=== PATIENT | male | born 1940 | race Caucasian/White ===

== ENCOUNTER → 2016-09-06 | Outpatient (CLI) | payer OTHER ==
[~2016-09-06] MED LIST: EZET10TA38
[2016-09-06 07:46] LABS: Urine RBC None Seen /hpf (0 - 3)
[2016-09-06 08:18] LABS: Basophils # (auto) 0 uL; Basophils % (auto) 0.6 % (0.0-2.0); Eosinophils # (auto) 0.3 uL; Eosinophils % (auto) 3.6 % (0.0-7.0); Hematocrit 52.6 % (41.0-53.0); Hemoglobin 17.7 g/dL (13.5-17.5); Lymphocytes % (auto) 37.9 % (10.0-50.0); Mean Corpuscular Hemoglobin 31.1 pg (28.0-32.0); Mean Corpuscular Hgb Conc. 33.7 g/dL (32.0-36.0); Mean Corpuscular Volume 92.3 fL (80.0-100.0); Mean Platelet Volume 10.1 fL (7.4-10.4); Monocytes # (auto) 0.8 uL; Monocytes % (auto) 10.2 % (0.0-12.0); Neutrophils # (auto) 3.7 uL; Neutrophils % (auto) 47.7 % (37.0-80.0); Platelet Count (auto) 163 10^3/uL (140-450); White Blood Cell 7.8 10^3/uL (4.4-10.8)
[2016-09-06 08:41] LABS: Albumin 3.8 g/dL (3.4-5.0); Bilirubin, Total 0.7 mg/dL (0.2-1.0); Calcium 9.4 mg/dL (8.5-10.1); Potassium 4.5 mmol/L (3.5-5.1); Total Protein 7.2 g/dL (6.4-8.2)
[2016-09-06 09:49] LABS: Urine Bilirubin Negative (Negative); Urine Blood Negative /uL (Negative); Urine Color Yellow (Yellow); Urine Glucose Normal (Normal); Urine Ketone Negative (Negative); Urine Nitrite Negative (Negative); Urine Squamous Epithelial Cell FEW /hpf (<5); Urine Urobilinogen Normal (Negative)
== END | disposition home or self-care (01) ==
LOC: LAB 07:36
PROVIDERS: ATTEND Family Medicine
DX: E78.5 Hyperlipidemia, unspecified (principal); I48.0 Paroxysmal atrial fibrillation
CPT/HCPCS: 36415; 80053; 80061; 81001; 84153; 85025

== ENCOUNTER → 2018-01-18 | Outpatient (CLI) | payer OTHER ==
[2018-01-18 10:44] LABS: Basophils # (auto) 0.1 uL; Eosinophils # (auto) 0.2 uL; Monocytes # (auto) 0.8 uL; Neutrophils # (auto) 3.9 uL; Nucleated Red Blood Cells % 0.1 %; White Blood Cell 7.7 10^3/uL (4.4-10.8)
[2018-01-18 10:46] LABS: Eosinophils % (auto) 2.9 % (0.0-7.0); Hematocrit 52.6 % (41.0-53.0); Lymphocytes # (auto) 2.6 uL; Lymphocytes % (auto) 34.3 % (10.0-50.0); Mean Corpuscular Hemoglobin 31.8 pg (28.0-32.0); Mean Corpuscular Hgb Conc. 34.3 g/dL (32.0-36.0); Mean Corpuscular Volume 92.8 fL (80.0-100.0); Neutrophils % (auto) 50.8 % (37.0-80.0); Platelet Count (auto) 137 10^3/uL (140-450); Red Blood Cells 5.67 10^6/uL (4.5-5.90); Red Cell Distribution Width 13.5 % (11.8-14.3)
[2018-01-18 10:51] LABS: Urine Bacteria NONE SEEN /hpf (None Seen); Urine Blood TRACE /uL (Negative); Urine Mucus FEW (None Seen); Urine Specific Gravity 1.011 (1.001-1.035); Urine WBC 1 /hpf (0 - 3)
[2018-01-18 11:25] LABS: Bilirubin, Total 1.2 mg/dL (0.2-1.0); Calcium 9.8 mg/dL (8.5-10.1); Potassium 4.5 mmol/L (3.5-5.1); Total Protein 7.7 g/dL (6.4-8.2)
== END | disposition home or self-care (01) ==
LOC: LAB 10:11
PROVIDERS: ATTEND Family Medicine
DX: E78.5 Hyperlipidemia, unspecified (principal)
CPT/HCPCS: 36415; 80053; 80061; 81001; 84153; 85025

== ENCOUNTER → 2018-09-13 | Outpatient (CLI) | payer OTHER ==
[2018-09-13 11:49] LABS: Basophils # (auto) 0 uL; Basophils % (auto) 0.7 % (0.0-2.0); Eosinophils # (auto) 0.2 uL; Hematocrit 51.5 % (41.0-53.0); Hemoglobin 17.4 g/dL (13.5-17.5); Lymphocytes # (auto) 2.1 uL; Lymphocytes % (auto) 31.6 % (10.0-50.0); Mean Corpuscular Hemoglobin 31.8 pg (28.0-32.0); Mean Corpuscular Hgb Conc. 33.8 g/dL (32.0-36.0); Mean Corpuscular Volume 94.1 fL (80.0-100.0); Monocytes # (auto) 0.8 uL; Monocytes % (auto) 11.8 % (0.0-12.0); Neutrophils # (auto) 3.5 uL; Neutrophils % (auto) 52.9 % (37.0-80.0); Nucleated Red Blood Cells % 0.1 %; Platelet Count (auto) 122 10^3/uL (140-450); Red Blood Cells 5.47 10^6/uL (4.5-5.90); Red Cell Distribution Width 13.6 % (11.8-14.3); White Blood Cell 6.6 10^3/uL (4.4-10.8)
[2018-09-13 11:52] LABS: Urine Bacteria NONE SEEN /hpf (None Seen); Urine Blood 1+ /uL (Negative); Urine Mucus FEW (None Seen); Urine Specific Gravity 1.021 (1.001-1.035); Urine WBC 3 /hpf (0 - 3)
[2018-09-13 12:11] LABS: Albumin 3.9 g/dL (3.4-5.0); Potassium 4.6 mmol/L (3.5-5.1)
[2018-09-13 12:18] LABS: BUN/Creatinine Ratio 14.8; Bilirubin, Total 1.1 mg/dL (0.2-1.0); Calcium 9.4 mg/dL (8.5-10.1)
== END | disposition home or self-care (01) ==
LOC: LAB 10:20
PROVIDERS: ATTEND Nurse Practitioner
DX: E78.5 Hyperlipidemia, unspecified (principal); E11.9 Type 2 diabetes mellitus without complications
CPT/HCPCS: 36415; 80053; 80061; 81001; 82306; 83036; 84153; 84443; 85025

== ENCOUNTER → 2019-04-04 | Outpatient (CLI) | payer OTHER ==
[~2019-04-04] MED LIST changes: +EZET10TA24; -EZET10TA38
== END | disposition home or self-care (01) ==
LOC: XYW 07:44
PROVIDERS: ATTEND Internal Medicine
DX: I08.1 Rheumatic disorders of both mitral and tricuspid valves (principal); I50.32 Chronic diastolic (congestive) heart failure
CPT/HCPCS: 93306

== ENCOUNTER → 2019-04-17 | Outpatient (CLI) | payer OTHER ==
[2019-04-17 10:24] LABS: Basophils # (auto) 0.1 uL; Eosinophils # (auto) 0.1 uL; Mean Corpuscular Volume 93.4 fL (80.0-100.0); Neutrophils # (auto) 3.4 uL; Nucleated Red Blood Cells % 0.1 %; White Blood Cell 6.4 10^3/uL (4.4-10.8)
[2019-04-17 10:29] LABS: Basophils % (auto) 1.1 % (0.0-2.0); Eosinophils % (auto) 1.9 % (0.0-7.0); Hematocrit 51.7 % (41.0-53.0); Hemoglobin 17.6 g/dL (13.5-17.5); Lymphocytes % (auto) 31.8 % (10.0-50.0); Mean Corpuscular Hemoglobin 31.8 pg (28.0-32.0); Monocytes # (auto) 0.8 uL; Neutrophils % (auto) 53.2 % (37.0-80.0); Platelet Count (auto) 131 10^3/uL (140-450); Red Blood Cells 5.54 10^6/uL (4.5-5.90); Red Cell Distribution Width 13.7 % (11.8-14.3)
[2019-04-17 10:30] LABS: Urine Bacteria NONE SEEN /hpf (None Seen); Urine Blood 2+ /uL (Negative); Urine Mucus FEW (None Seen); Urine Specific Gravity 1.015 (1.001-1.035); Urine WBC 5 /hpf (0 - 3)
[2019-04-17 10:58] LABS: Albumin 3.8 g/dL (3.4-5.0); Calcium 9.4 mg/dL (8.5-10.1); Potassium 4.6 mmol/L (3.5-5.1)
[2019-04-17 11:08] LABS: BUN/Creatinine Ratio 17.1; Bilirubin, Total 0.8 mg/dL (0.2-1.0); Total Protein 7.2 g/dL (6.4-8.2)
== END | disposition home or self-care (01) ==
LOC: LAB 09:37
PROVIDERS: ATTEND Nurse Practitioner
DX: E78.5 Hyperlipidemia, unspecified (principal)
CPT/HCPCS: 36415; 80053; 80061; 81001; 84443; 85025

== ENCOUNTER → 2019-12-24 | Outpatient (CLI) | payer OTHER ==
[~2019-12-24] VITALS: Ht 172.7 cm; Wt 86.2 kg
[~2019-12-24] MED LIST changes: +ADENOSINE 72 MG in GIVE UN-DILUTED 0 ML IV STA
[2019-12-24 11:01] VITALS: BP 124/79
== END | disposition home or self-care (01) ==
LOC: XY 08:24
PROVIDERS: ATTEND Internal Medicine
DX: I50.42 Chronic combined systolic (congestive) and diastolic (congestive) heart failure (principal)
CPT/HCPCS: 78452; 93017; A9500; J0153